=== PATIENT | female | born 1990 ===

== ENCOUNTER 2017-07-13 13:16 | Emergency (ER) | payer SELFPAY ==
[2017-07-13 13:26] VITALS: BP 114/71
[2017-07-13 15:39] LABS: Bacteria,Urine 2+ /HPF (Negative); Bilirubin,Urine NEG (Negative); Blood,Urine SM (Negative); Ketones,Urine TR mg/dL (Negative); Leukocyte Esterase,Urine TR (Negative); Mucus,Urine FEW /HPF; Nitrite,Urine POS (Negative); Protein,Urine <15 mg/dL mg/dL (Negative)
== END 2017-07-13 20:00 | disposition left against medical advice (07) ==
LOC: ED 13:16
DX: R39.15 Urgency of urination (principal); Z53.21 Procedure and treatment not carried out due to patient leaving prior to being seen by health care provider
CPT/HCPCS: 81001; 81025